=== PATIENT | male | born 1990 | race Two or more races ===

== ENCOUNTER 2016-12-03 19:49 | Inpatient (IN) | payer BC, MEDICAID ==
[~2016-12-03] VITALS: Ht 193 cm; Wt 120.3 kg
[2016-12-03] MEDS ORDERED: SODIUM CHLORIDE 0.9% 1,000 ML IV ONE (21:13)
[2016-12-03] MEDS ORDERED: LORazepam 2MG/ML-1ML VIAL IV ONE (21:15)
[2016-12-03] MEDS ORDERED: ASPirin 81 mg TAB PO ONE (21:15)
[2016-12-03 21:16] LABS: Basophils # (auto) 0.1 uL; Basophils % (auto) 1.1 % (0.0-2.0); Eosinophils # (auto) 0.4 uL; Eosinophils % (auto) 4.5 % (0.0-7.0); Hematocrit 46.7 % (41.0-53.0); Hemoglobin 14.9 g/dL (13.5-17.5); Lymphocytes # (auto) 3.3 uL; Lymphocytes % (auto) 38.5 % (10.0-50.0); Mean Corpuscular Hemoglobin 28.2 pg (28.0-32.0); Mean Corpuscular Volume 88.3 fL (80.0-100.0); Mean Platelet Volume 8.4 fL (7.4-10.4); Monocytes # (auto) 0.7 uL; Monocytes % (auto) 7.6 % (0.0-12.0); Neutrophils # (auto) 4.2 uL; Neutrophils % (auto) 48.3 % (37.0-80.0); Platelet Count (auto) 280 10^3/uL (140-450); Red Cell Distribution Width 14.5 % (11.6-16.0); White Blood Cell 8.6 10^3/uL (4.4-10.8)
[2016-12-03 21:46] LABS: BUN/Creatinine Ratio 11.7; Bilirubin, Total 0.3 mg/dL (0.2-1.0); Potassium 4.1 mmol/L (3.5-5.1); Total Protein 7.5 g/dL (6.4-8.2)
[2016-12-03] MEDS ORDERED: MORPHINE SULF INJ 2 MG/ML SYRINGE 1ML IV PRN (23:30)
[2016-12-03] MEDS ORDERED: HYDROcodone-ACET 5/325MG TAB PO PRN (23:30)
[2016-12-03] MEDS ORDERED: ACETAMINOPHEN 325 MG TAB PO PRN (23:30)
[2016-12-03] MEDS ORDERED: ONDANSETRON HCL 4 MG/2 ML VIAL IV PRN (23:30)
[2016-12-03] MEDS ORDERED: NITROGLYCERIN 0.4 MG SL TAB SL PRN (23:30)
[2016-12-04 00:10] VITALS: BP 143/56
[2016-12-04] MEDS ORDERED: BACL20TA PO (04:20)
[2016-12-04] MEDS ORDERED: IBUP800T24 PO (04:20)
[2016-12-04 05:00] VITALS: BP 103/50
[2016-12-04 07:28] LABS: Basophils # (auto) 0.1 uL; Basophils % (auto) 1.2 % (0.0-2.0); Eosinophils # (auto) 0.3 uL; Eosinophils % (auto) 4.8 % (0.0-7.0); Hematocrit 45.5 % (41.0-53.0); Hemoglobin 14.3 g/dL (13.5-17.5); Lymphocytes # (auto) 2.4 uL; Lymphocytes % (auto) 36.9 % (10.0-50.0); Mean Corpuscular Hgb Conc. 31.3 g/dL (32.0-36.0); Mean Corpuscular Volume 89.4 fL (80.0-100.0); Mean Platelet Volume 8.5 fL (7.4-10.4); Monocytes # (auto) 0.5 uL; Monocytes % (auto) 8.3 % (0.0-12.0); Neutrophils # (auto) 3.2 uL; Neutrophils % (auto) 48.8 % (37.0-80.0); Platelet Count (auto) 246 10^3/uL (140-450); Red Cell Distribution Width 13.9 % (11.6-16.0); White Blood Cell 6.5 10^3/uL (4.4-10.8)
[2016-12-04 07:30] VITALS: BP 115/51
[2016-12-04 08:33] VITALS: BP 115/51
[2016-12-04 08:54] LABS: Albumin 3.6 g/dL (3.4-5.0); BUN/Creatinine Ratio 11.3; Bilirubin, Total 0.6 mg/dL (0.2-1.0); Calcium 8.6 mg/dL (8.5-10.1); Potassium 4.6 mmol/L (3.5-5.1); Total Protein 6.7 g/dL (6.4-8.2)
[2016-12-04] MEDS ORDERED: ENOXAPARIN SOD 40 MG/0.4 ML SYRINGE SC SCH (10:00)
[2016-12-04] MEDS ORDERED: FAMOTIDINE 20 MG TAB PO SCH (10:00)
[2016-12-04] MEDS ORDERED: ASPirin 81 mg TAB PO SCH (10:00)
[2016-12-04 13:00] VITALS: BP 136/69
== END 2016-12-04 14:50 | disposition home or self-care (01) | DRG 313 ==
LOC: ER 20:08 → TELE 20:09 → TELE-CENTR 23:55
PROVIDERS: ADMIT Nurse Practitioner; ATTEND Nurse Practitioner
DX: R07.89 Other chest pain (principal); R79.89 Other specified abnormal findings of blood chemistry; R20.0 Anesthesia of skin
CPT/HCPCS: 36415; 70450; 71010; 80053; 84484; 85025; 93005; 93306; 94761; 96361; 96374